=== PATIENT | female | born 1960 | race Caucasian/White ===

== ENCOUNTER 2022-10-05 09:42 | Inpatient (IN) | payer MEDICARE ==
[~2022-10-05] VITALS: Ht 170.2 cm; Wt 54.9 kg
--- NOTE | 2022-10-05 10:15 | NUR ---
copy editor at bedside
[2022-10-05 10:26] LABS: BASOPHILS % (AUTO) 0.9 % (0.0-2.0); EOSINOPHILS % (AUTO) 1.9 % (0.0-6.0); HEMATOCRIT 42 % (33-45); HEMOGLOBIN 13.5 g/dL (11.5-14.8); LYMPHOCYTES # (AUTO) 1.4 K/uL (0.8-4.8); LYMPHOCYTES % (AUTO) 26.7 % (20.0-44.0); MEAN CORPUSCULAR HGB CONC 32 g/dl (31.0-36.0); MEAN CORPUSCULAR VOLUME 84 fL (82-100); MONOCYTES # (AUTO) 0.6 K/uL (0.1-1.30); MONOCYTES % (AUTO) 10.6 % (2.0-12.0); NEUTROPHILS # (AUTO) 3.2 K/uL (1.8-8.9); NEUTROPHILS % (AUTO) 59.9 % (43.0-81.0); PLATELET COUNT (AUTO) 323 K/uL (150-450); RED BLOOD CELL COUNT(AUTO) 5.03 MIL/uL (4.0-5.2); WHITE BLOOD COUNT (AUTO) 5.3 K/uL (4.3-11.0)
[2022-10-05] MEDS ORDERED: ALBU8.5H8 IH (10:31)
[2022-10-05] MEDS ORDERED: LAMO150T2 PO (10:31)
[2022-10-05] MEDS ORDERED: MAG-55 PO (10:31)
[2022-10-05] MEDS ORDERED: FAMO-131 PO (10:31)
[2022-10-05] MEDS ORDERED: IPRA3AMP23 IH (10:31)
[2022-10-05] MEDS ORDERED: FLUT1BLS6 IH (10:31)
[2022-10-05] MEDS ORDERED: SERT100T PO (10:31)
[2022-10-05] MEDS ORDERED: TEMA15CA PO (10:31)
[2022-10-05] MEDS ORDERED: MAGN400O6 PO (10:31)
[2022-10-05] MEDS ORDERED: POLY17PO4 PO (10:31)
[2022-10-05] MEDS ORDERED: ACET325T53 PO (10:31)
[2022-10-05] MEDS ORDERED: BISA10SU11 RC (10:31)
[2022-10-05] MEDS ORDERED: NA P133E RC (10:31)
[2022-10-05] MEDS ORDERED: CHOL100043 PO (10:31)
[2022-10-05] MEDS ORDERED: LEVO15TA5 PO (10:31)
[2022-10-05] MEDS ORDERED: LORA-258 PO (10:31)
[2022-10-05] MEDS ORDERED: CLOZ100T32 PO ×2 (10:31)
[2022-10-05] MEDS ORDERED: LIOT25TA7 PO (10:31)
--- NOTE | 2022-10-05 10:39 | NUR ---
COVID SWAB SENT TO LAB ORDERED
--- NOTE | 2022-10-05 10:40 | NUR ---
MALICK SHELL FOR MEDICAL CLEARANCE AND PSYCH EVAL. +SI. SITTER AT BEDSIDE FOR SAFETY
[2022-10-05 10:52] LABS: CALCIUM, SERUM 10.6 mg/dL (8.5-10.1); CARBON DIOXIDE 29 mmol/L (21-32); CHLORIDE 105 mmol/L (98-107); CREATININE 0.8 mg/dL (0.6-1.3); GLUCOSE 107 mg/dL (74-106); POTASSIUM 4.6 mmol/L (3.5-5.1); SODIUM SERUM 140 mmol/L (136-145); UREA NITROGEN, BLOOD 24 mg/dL (7-18)
[2022-10-05 10:58] LABS: ALANINE AMINOTRANSFERASE 30 U/L (12-78); ALBUMIN 3.3 g/dL (3.4-5.0); ALKALINE PHOSPHATASE 122 U/L (46-116); ASPARTATE AMINOTRANSFERASE 20 U/L (15-37); BILIRUBIN,DIRECT 0.1 mg/dL (0.0-0.2); BILIRUBIN,TOTAL 0.3 mg/dL (0.2-1.0); TOTAL PROTEIN, SERUM 7.6 g/dL (6.4-8.2)
[2022-10-05 11:07] LABS: ACETAMINOPHEN < 10 ug/ml (10-30); ALCOHOL, BLOOD < 3 mg/dL (0-0)
--- NOTE | 2022-10-05 12:00 | NUR ---
214-B BED GIVEN AFTER 5150 HOLD WRITTEN
--- NOTE | 2022-10-05 13:17 | NUR ---
urine specimen sent to lab as ordered
--- NOTE | 2022-10-05 13:23 | NUR ---
CALLED [facility] [phone]
[2022-10-05] MEDS ORDERED: ACET-868 PO (13:29)
[2022-10-05 14:07] LABS: BILIRUBIN,URINE 1+ (NEGATIVE); COLOR,URINE YELLOW (YELLOW); LEUKOCYTE ESTERASE ,URINE TRACE (NEGATIVE); NITRITE, URINE POSITIVE (NEGATIVE); PROTEIN,URINE NEGATIVE (NEGATIVE); UGLUCOSE NEGATIVE (NEGATIVE); UROBILINOGEN,URINE 0.2 EU/dL (0.2)
[2022-10-05 14:57] LABS: BACTERIA,URINE Many /HPF (None Seen); RBC,URINE 0-2 /HPF (0-2); SQUAMOUS EPITHELIAL CELL,UR Few /HPF (None Seen); WBC,URINE 0-2 /HPF (0-3)
[2022-10-05 15:02] LABS: URIC ACID CRYSTALS,URINE Few /HPF (None Seen)
[2022-10-05 15:03] LABS: URINE AMORPHOUS URATE Moderate /HPF (None Seen)
--- NOTE | 2022-10-05 15:10 | NUR ---
Patient placed on a 5150 for GD and admitted to [facility] under the care of Dr. Orellana
--- NOTE | 2022-10-05 15:26 | NUR ---
report given to Shaylee KENNEDY
[2022-10-05 16:00] VITALS: BP 127/75
--- NOTE | 2022-10-05 16:11 | NUR ---
LEORA Clinical Note: Pt placed on a 5150 hold for GD. Pt was aggressive at her facility. [facility] [place] [address] [facility] [place] [address]; . LEORA reached out to Varun metz and he stated that he will confirm with treatment team if pt is welcomed back.LEORA will contact pt's sister Zita ([phone]) to gather collateral. LEORA will work with the MD, family, and treatment team.
--- NOTE | 2022-10-05 16:11 | NUR ---
LEORA Initial Discharge Note: Patient currently resides at [facility] [place] [address]; . LEORA reached out to Varun metz and he stated that he will confirm with treatment team if pt is welcomed back.LEORA will contact pt's sister Zita ([phone]) to gather collateral. LEORA will work with the MD, family, and treatment team.
--- NOTE | 2022-10-05 16:11 | NUR ---
Treatment Plan: Pt refused to sign treatment plan and was blankly staring.
[2022-10-05 16:25] VITALS: BP 127/75
[2022-10-05] MEDS ORDERED: clonazePAM 0.5 MG TABLET PO PRN (16:30)
[2022-10-05] MEDS ORDERED: ACETAMINOPHEN 325 MG TABLET PO PRN ×2 (16:30→20:30)
[2022-10-05] MEDS ORDERED: BLOOD SUGAR DIAGNOSTIC 1 EACH STRIP IN ONE (16:30)
[2022-10-05] MEDS ORDERED: MAGNESIUM HYDROXIDE 30 ML UDC PO PRN ×2 (16:30→20:30)
[2022-10-05] MEDS ORDERED: TEMAZEPAM 7.5 MG CAPSULE PO PRN (16:30)
[2022-10-05] MEDS ORDERED: MAG HYDROX/AL HYDROX/SIMETH 30 ML UDC PO PRN ×2 (16:30→20:30)
--- NOTE | 2022-10-05 16:49 | NUR ---
Admitted a 62 years old female from ER on 515 for GD. Pt. arrived in the unit via a gurney and transported by ER staff. Initially was BIB by ambulance from [facility] to ER due to being non compliant, not taking and agitated. Upon face to face assessment pt. is not responding to any questions being asked. Some information was taken from the ER. Dr. Kerr made of the admission with orders. Box Covering Machine Operator Keo Mosley made aware of the admission and informed that meds are ready for reconciliation. V/S taken, contraband done, skin assessment done and not responding when being asked to signed the admitting papers. Contacted the sister Zita Moscoso at [phone] but unable to reach. Will continue to monitor for safety.
--- NOTE | 2022-10-05 17:30 | NUR ---
RN NOTES PATIENT REFUSED TO CHECK HER BLOOD SUGAR, APPROACHED SEVERAL TIMES. EXPLAINED RISK AND BENEFITS.
--- NOTE | 2022-10-05 18:46 | NUR ---
RN NOTES PATIENT STILL IS NOT COOPERATIVE AND WHEN ASK, SHE GETS IRRITATED NAND AGITATED. REFUSED BLOOD SUGAR MONITORING AND REFUSED DINNER, OFFERED SNACKS BUT STILL REFUSING, WILL ENDORSED TO NIGHT NURSE TO ENCOURAGE ORAL INTAKE.
--- NOTE | 2022-10-05 18:52 | NUR ---
RN NOTES THOROUGH ASSESSMENT WERE NOT DONE ACCORDINGLY PATIENT WAS NOT COOPERATIVE.
[2022-10-05 20:15] VITALS: BP 127/75
[2022-10-05] MEDS ORDERED: BISACODYL SUPP (10 MG) 10 MG/SUPP.RECT SUPP.RECT RC PRN (20:30)
[2022-10-05] MEDS ORDERED: IPRATROPIUM NEB FS 0.5 MG/2.5 ML AMPUL.NEB NEB PRN (20:30)
[2022-10-05] MEDS ORDERED: NA PHOS,M-B/NA PHOS,DI-BA 1 EA ENEMA RC PRN (20:30)
[2022-10-05] MEDS ORDERED: Medication Not On Formulary EA (Ipratropium/Albuterol Sulfate (Duoneb 2.5-0.5 Mg/3 Ml So IH PRN (20:30)
[2022-10-05] MEDS ORDERED: ALBUTEROL FS 2.5 MG/3 ML VIAL.NEB NEB PRN (20:30)
[2022-10-05] MEDS ORDERED: ALBUTEROL FS 2.5 MG/3 ML VIAL.NEB IH PRN (20:30)
--- NOTE | 2022-10-05 21:45 | NUR ---
NEW ADMIT FROM AM SHIFT, ALERT/ORIENTED X2, ROOM AIR, NO COMPLAIN OF PAIN, REFUSED VITALS SIGNS, REFUSED SKIN ASSESSMENT, AGGRESSIVE, YELLING AND HITTING THE BED. OFFERED KLONOPIN, ALSO REFUSED. ON BEDREST, WILL START ON NITROFURANTOIN FOR UTI. KEPT SAFE, WILL CONTINUE TO MONITOR FOR SAFETY.
--- NOTE | 2022-10-05 22:06 | NUR ---
REFUSED BREATHING TREATMENT, REFUSED HAVING SPO2 TAKEN, NO APPARENT SOB
[2022-10-05] MEDS: CEPHALEXIN MONOHYDRATE 500 MG CAPSULE PO SCH (23:12)
--- NOTE | 2022-10-05 23:12 | NUR ---
LAURA REFUSED, OFFERED X3, EDUCATED ON MEDICATION, STILL REFUSED
[2022-10-06] MEDS: CEPHALEXIN MONOHYDRATE 500 MG CAPSULE PO SCH (05:49)
--- NOTE | 2022-10-06 06:06 | NUR ---
ADMITTED 10/05/22 BY AM SHIFT, ALERT AND ORIENTED X2, ROOM AIR, NO COMPLAIN OF PAIN, AGGRESSIVE, HOSTILE, REFUSING NURSING CARE, BREATHING TREATMENT, KEFLEX. REFUSED X2, REFUSED TO EAT. SPORADIC SCREAMING, ASKING FOR HELP, WHEN ASK, PATIENT BECOMES VERBALLY ABUSIVE, ALSO HITTING BED WITH HANDS. DID NOT ATTEMPT TO GET OUT OF BED. AGREED TO HAVE DIAPER CHANGED, BUTTOCKS INTACT, NOTED PAIN PUMP EMBEDDED UNDER THE SKIN OF LEFT BUTTOCK. REFUSED BLOOD DRAW.
[2022-10-06 08:00] VITALS: BP 127/71
[2022-10-06] MEDS: ENSURE ENLIVE CHOC 237 ML CAN PO SCH ×2 (08:00→17:02)
[2022-10-06] MEDS: CEPHALEXIN MONOHYDRATE 250 MG CAPSULE PO SCH ×3 (12:00→23:46)
[2022-10-06] MEDS: OLANZAPINE ZYDIS 5 MG TAB.RAPDIS PO SCH ×2 (13:00→16:40)
--- NOTE | 2022-10-06 13:18 | NUR ---
RN-NOTES PATIENT REFUSED LAB DRAW DESPITE EXPLANATIONS RISK AND BENEFITS.
--- NOTE | 2022-10-06 13:57 | NUR ---
RN-NOTES PATIENT REFUSED 1200 AND 1300PM P.O MEDICATIONS. STATED" NO MEDICATIONS". OFFERED X3
[2022-10-06 16:00] VITALS: BP 112/64
--- NOTE | 2022-10-06 17:03 | NUR ---
RN-NOTES PATIENT REFUSED KEFLEX 500MG P.O . OFFERED X3
--- NOTE | 2022-10-06 17:27 | NUR ---
RN-NOTES PATIENT IN THE ROOM MOST THE TIME A/O X1 GUARDED NO ACUTE DISTRESS NOTED. PATIENT REFUSED ALL P.O MEDICATIONS DESPITE ENCOURAGEMENT. NOTED WITH EASILY ANGRY,GUARDED,MINIMAL INTERACTIONS WITH STAFF.NEEDS MAXIMUM ASSIST WITH ADL'S. ALL NEEDS ATTENDED AND ANTICIPATED. WILL CONT. MONITORING FOR SAFETY AND BEHAVIOR.WILL ENDORSE TO INCOMING NURSE FOR THE CONTINUITY OF CARE.
--- NOTE | 2022-10-06 19:45 | NUR ---
RN NOTES: RECEIVED PATIENT RESTING IN ROOM. A & O X 1, REMAINS EXTREMELY CONFUSED, DISORGANIZED, PARANOID, EASILY AGITAED UNABLE TO FOLLOW DIRECTIONS, YELLING SCREAMING PARANOID, UNCOOPERTIVE HIGH FALL RISKS ,NO S/S OF APPARENT DISTRESS AT THIS TIME. NO ACUTE DISTRESS NOTED , NON COMPLIANT WITH MEDICATIONS . PATIENT DENIES SUICIDAL AND HOMICIDAL IDEATIONS AT THIS TIME. SAFETY PRECAUTIONS MAINTAINED WILL CONTINUE TO MONITOR THIS PATIENT Q15 MINUTES WITH THE HELP OF STAFF TO MAINTAIN SAFETY.
--- NOTE | 2022-10-06 23:46 | NUR ---
RN-NOTES; REFUSED MEDICATION PATIENT REFUSED KEFLEX, EXPLAINED RISK AND BENEFITS BUT STILL REFUSED. OFFERED X3 , PT. BEHAVIOUR UNCOOPERTIVE , YELLING ,SCREAMING, ANXIOUS,PARANOID, WILL CONTINUE WITH CARE.
[2022-10-07] MEDS: CEPHALEXIN MONOHYDRATE 250 MG CAPSULE PO SCH ×4 (06:00→23:57)
--- NOTE | 2022-10-07 07:13 | NUR ---
RN-NOTES; REFUSED MEDICATION PATIENT REFUSED KEFLEX AT 0600, EXPLAINED RISK AND BENEFITS BUT STILL REFUSED. OFFERED X3 , PT. BEHAVIOUR UNCOOPERTIVE , YELLING ,SCREAMING, ANXIOUS,PARANOID, WILL CONTINUE WITH CARE.
[2022-10-07 08:00] VITALS: BP 136/71
[2022-10-07] MEDS: ENSURE ENLIVE CHOC 237 ML CAN PO SCH ×2 (08:00→17:15)
[2022-10-07] MEDS: OLANZAPINE ZYDIS 5 MG TAB.RAPDIS PO SCH ×2 (09:00→17:00)
[2022-10-07] MEDS: VENLAFAXINE XR 37.5 MG CAP.SR.24H PO SCH (09:00)
--- NOTE | 2022-10-07 09:00 | NUR ---
HAND DRAWER IN HELPER NOTE PATIENT REFUSED 0900 MED. PATIENT ALSO REFUSED BREAKFAST. WILL CONTINUE TO MONITOR.
--- NOTE | 2022-10-07 12:00 | NUR ---
SCIENTIFIC GLASS BLOWER NOTE PATIENT REFUSED CEPHALEXIN 1200HRS.
[2022-10-07 16:00] VITALS: BP 98/68
--- NOTE | 2022-10-07 17:00 | NUR ---
SLAT GRADER NOTE PATIENT REFUSED 1700 MED. PATIENT ALSO STATED THAT FOR DINNER SHE ONLY WANTED HER ENSURE, THAT SHE DIDNT WANT TO EAT ANYTHING ELSE. PATIENT DRANK ENTIRE ENSURE FOR LUNCH ONLY.
[2022-10-07 20:33] VITALS: BP 110/68
--- NOTE | 2022-10-08 | NUR ---
RN NOTE PATIENT DECLINED HAVING SKIN ASSESSMENT PICTURES TAKEN. PATIENT HAS BEEN DECLINING ALL TREATMENT THROUGHOUT SHIFT. WILL ENCOURAGE PATIENT TO HAVE PICTURES TAKEN AGAIN IN A.M. PATIENT O/W STABLE; WILL CONTINUE TO MONITOR PATIENT.
[2022-10-08] MEDS: CEPHALEXIN MONOHYDRATE 250 MG CAPSULE PO SCH ×4 (06:00→23:33)
[2022-10-08 08:00] VITALS: BP 106/50
--- NOTE | 2022-10-08 08:39 | NUR ---
LEORA Family Contact: SW attempted to contact pt's sister Zita ([phone]) and it was unavailable.
[2022-10-08] MEDS: VENLAFAXINE XR 37.5 MG CAP.SR.24H PO SCH (08:52)
[2022-10-08] MEDS: OLANZAPINE ZYDIS 5 MG TAB.RAPDIS PO SCH ×2 (08:52→17:00)
[2022-10-08] MEDS: ENSURE ENLIVE CHOC 237 ML CAN PO SCH ×2 (08:52→17:12)
--- NOTE | 2022-10-08 08:53 | NUR ---
RN NOTES: PT REFUSED AM MEDS, RN EXPLAINED IMPORTANCE OF MEDICATION, PT STILL REFUSED, RETURNED MEDS PER UNIT PROTOCOL
--- NOTE | 2022-10-08 09:14 | NUR ---
Facility Contact: SW spoke with Varun Maddox ([phone]) who stated that pt is welcomed back to [facility] when stable.
--- NOTE | 2022-10-08 12:40 | NUR ---
RN NOTES: PT REFUSED 12PM MEDICATION, RN EXPLAINED IMPORTANCE OF PM MEDICATION, PT STILL DECLINED, RETURNED MED PER UNIT PROTOCOL
[2022-10-08 16:00] VITALS: BP 108/61
--- NOTE | 2022-10-08 19:20 | NUR ---
RN notes Received Pt from morning nurse. Pt is resting in bed comfortably. Pt is alert and orientedX1, anxious, disorganized, uncooperative, non complaint. On room air. No SOB. No S/S of distress noted. Reality orientation provided. safety precautions is maintained. Will continue to monitor Q 15 mins checks for safety and behavior.
--- NOTE | 2022-10-08 20:27 | NUR ---
RN notes Pt refuses VS. Explained risks and benefits. Pt keep refusing. Offered several times. Pt agitated easily. Will continue to monitor.
[2022-10-08 21:20] VITALS: BP 115/82
--- NOTE | 2022-10-08 21:20 | NUR ---
RN notes Pt is complaining SOB. VS is taken. BP 115/82. HR 88 and O2 sat 100% on room air. Asked Pt again if Pt still having SOB. Pt stated "I am okay." Fuck you!" Will continue to monitor. HOB elevated, bed alarm is on. Safety precautions is maintained.
--- NOTE | 2022-10-08 23:34 | NUR ---
RN notes Pt is refusing keflex. explained risks and benefits. Pt keep refusing. Pt agitated easily. Will continue to monitor.
[2022-10-09] MEDS: CEPHALEXIN MONOHYDRATE 250 MG CAPSULE PO SCH (06:00)
[2022-10-09 08:00] VITALS: BP 99/56
--- NOTE | 2022-10-09 08:14 | NUR ---
HOTBED LEVER OPERATOR NOTES RECEIVED PATIENT RESTING IN ROOM. AOX1, REMAINS CONFUSED, DISORGANIZED, PARANOID, EASILY AGITATED UNABLE TO FOLLOW DIRECTIONS, YELLING SCREAMING, UNCOOPERATIVE HIGH FALL RISKS,NO S/S OF APPARENT DISTRESS AT THIS TIME. NO ACUTE DISTRESS NOTED, NON COMPLIANT WITH MEDICATIONS. PATIENT REFUSED MORNING MEDICATION EXPLAINED RISK AND BENEFITS BUT STILL REFUSED. PATIENT BECAME AGGRESSIVE WITH CHARGE OPERATOR'S AND PUSHED MEAL TRAY OUT OF THE WAY. PATIENT IS REFUSING TO EAT AND WILL ONLY DRINK AN ENSURE. PATIENT COMPLAINED ABOUT SHORTNESS OF BREATH, ELEVATED PATIENTS BED. TOOK PATIENTS VITALS BP 99/56 HR 65 02 SAT 97%, PATIENT THEN TOLD ME TO "FUCK OFF, AND TO GET OUT" CHARGE NURSE NOTIFIED. PATIENT DID DENY SUICIDAL AND HOMICIDAL IDEATIONS AT THIS TIME. SAFETY PRECAUTIONS MAINTAINED WILL CONTINUE TO MONITOR THIS PATIENT Q15 MINUTES WITH THE HELP OF STAFF TO MAINTAIN SAFETY.
[2022-10-09] MEDS: ENSURE ENLIVE CHOC 237 ML CAN PO SCH ×5 (08:16→21:42)
[2022-10-09] MEDS: VENLAFAXINE XR 37.5 MG CAP.SR.24H PO SCH (09:00)
[2022-10-09] MEDS: OLANZAPINE ZYDIS 5 MG TAB.RAPDIS PO SCH ×2 (09:00→17:00)
[2022-10-09] MEDS: AMOX/CLAVULANATE 875 MG TABLET PO SCH ×2 (11:27→21:00)
--- NOTE | 2022-10-09 12:19 | NUR ---
PEWTER FINISHER NOTE PATIENT DRANK ENSURE FOR LUNCH, ATE ICE CREAM AND CHOCOLATE PUDDING WITH NO ISSUES.
[2022-10-09 16:00] VITALS: BP 92/55
--- NOTE | 2022-10-09 21:43 | NUR ---
Pt refused 2100 medication...
[2022-10-10 08:00] VITALS: BP 101/57
[2022-10-10] MEDS: VENLAFAXINE XR 37.5 MG CAP.SR.24H PO SCH (09:00)
[2022-10-10] MEDS: OLANZAPINE ZYDIS 5 MG TAB.RAPDIS PO SCH ×2 (09:00→17:00)
[2022-10-10] MEDS: ENSURE ENLIVE CHOC 237 ML CAN PO SCH ×5 (09:00→20:20)
[2022-10-10] MEDS: AMOX/CLAVULANATE 875 MG TABLET PO SCH ×2 (09:00→20:20)
[2022-10-10 16:00] VITALS: BP 103/59
[2022-10-10] MEDS: OLANZAPINE 10 MG VIAL IM PRN (17:10)
--- NOTE | 2022-10-10 18:59 | NUR ---
RN NOTES PATIENT WAS STILL NOTED WITH BEHAVIOR TO BEING AGITATED AND TRYING TO CLIMB OUT OF BED , PUT IN O[place]A CHAIR , COMPLIANT WITH MEDS MIXED WITH APPLE SAUCE AND ABLE TO PARTICIPATE ACTIVITY AND PATIENT ON ATB OF ROCEPHIN IM GIVEN , NO ASE NOTED ENDORSED TO NEXT SHIFT Addendum: 10/10/22 at 1907 by JYOTI BOCANEGRA RN DISREGARD THIS NOTES , WRONG DOCUMENTATION
--- NOTE | 2022-10-10 19:07 | NUR ---
RN NOTES PATIENT WAS ON REISE HEARING AND REISED WAS APPROVED , ZYPREXA IM 5MG BID IF PO MEDS IS REFUSED , GIVEN ORDERED , STILL NON COMPLIANT WITH MEDS
[2022-10-10 20:00] VITALS: BP 98/56
--- NOTE | 2022-10-10 20:21 | NUR ---
REFUSED AUGMENTIN AND ENSURE. OFFERED X3, EXPLAINED RISKS AND BENEFITS, STILL REFUSED.
[2022-10-10 20:47] VITALS: BP_SYST 112; BP_SYST 98; BP_DIAS 56; BP_DIAS 61
[2022-10-11 08:00] VITALS: BP 95/65
[2022-10-11] MEDS: AMOX/CLAVULANATE 875 MG TABLET PO SCH ×3 (09:00→21:04)
[2022-10-11] MEDS: OLANZAPINE ZYDIS 5 MG TAB.RAPDIS PO SCH ×3 (09:00→17:11)
[2022-10-11] MEDS: VENLAFAXINE XR 37.5 MG CAP.SR.24H PO SCH (09:00)
[2022-10-11] MEDS: ENSURE ENLIVE CHOC 237 ML CAN PO SCH ×4 (09:06→21:14)
[2022-10-11] MEDS: OLANZAPINE 10 MG VIAL IM PRN ×2 (09:07→17:46)
[2022-10-11 16:00] VITALS: BP 100/60
--- NOTE | 2022-10-11 18:26 | NUR ---
STOCK FITTER NOTE PATIENT REFUSED ALL MEDS. PATIENT DID DRINK ALL ENSURES GIVEN AT EACH MEAL.PATIENT IS RIESED ZYPREXA IM 5MG BID IF PO MEDS IS REFUSED , GIVEN ORDERED , STILL NON COMPLIANT WITH MEDS. PATIENT VERBALLY ABUSIVE TOWARDS STAFF.
[2022-10-11 20:37] VITALS: BP 135/76
--- NOTE | 2022-10-11 21:57 | NUR ---
RN NOTES; PATIENT REFUSED DUE MEDS @2100-AMOX 875MG,EXPLAINED BENEFITS X3,STILL REFUSED.
[2022-10-12 08:00] VITALS: BP 128/72
[2022-10-12] MEDS: VENLAFAXINE XR 37.5 MG CAP.SR.24H PO SCH ×2 (08:42→09:00)
[2022-10-12] MEDS: ENSURE ENLIVE CHOC 237 ML CAN PO SCH ×4 (08:42→21:41)
[2022-10-12] MEDS: AMOX/CLAVULANATE 875 MG TABLET PO SCH ×3 (08:45→21:00)
--- NOTE | 2022-10-12 09:29 | NUR ---
RN- NOTES PATIENT REFUSED ALL 0900 MEDICATIONS. ENCOURAGEMENT AND EDUCATION ON MEDICATION COMPLIANCE GIVEN X3, PATIENT CONTINUES TO REFUSE.
[2022-10-12] MEDS: HALOPERIDOL 5 MG TABLET PO SCH ×2 (10:00→16:30)
[2022-10-12] MEDS: HALOPERIDOL LACTATE INJ 5 MG/ML VIAL IM PRN ×2 (10:06→17:19)
--- NOTE | 2022-10-12 10:06 | NUR ---
RN- NOTES HALDOL IM ADMINISTERED DUE TO PATIENT REFUSING HALDOL P.O, PER NICHOLAS AND MD ORDERS.
--- NOTE | 2022-10-12 15:55 | NUR ---
RN- NOTES PATIENT REFUSED LAB DRAW, EDUCATED AND ENCOURAGED X3, PATIENT CONTINUES TO REFUSE.
[2022-10-12 16:00] VITALS: BP 95/64
--- NOTE | 2022-10-12 17:20 | NUR ---
RN- NOTES HALDOL IM ADMINISTERED DUE TO PATIENT REFUSING HALDOL P.O, PER NICHOLAS AND MD ORDERS.
--- NOTE | 2022-10-12 18:15 | NUR ---
RN- CLOSING NOTES PATIENT IS AWAKE, LAYING DOWN IN BED. BREATHING EVEN AND NON LABORED WITH NO S/S OF DISTRESS PATIENT ATE 25% OF BREAKFAST/LUNCH, AND 50% OF DINNER. PATIENT IS GUARDED, ISOLATIVE, DEPRESSED, WITH PERIODS OF YELLING OUT TO STAFF, BUT REFUSAL OF HELP WHEN OFFERED. PATIENT REFUSED ALL P.O MEDICATIONS, IM HALDOL ADMINISTERED PER REFUSAL FOLLOWING RIESE AND MD ORDERS. DENIES SI/HI AT THIS TIME. WILL CONTINUE TO MONITOR Q 15 MINUTES FOR SAFETY AND BEHAVIOR.
[2022-10-12 20:00] VITALS: BP 98/59
--- NOTE | 2022-10-12 21:41 | NUR ---
RN NOTES; PATIENT REFUSED DUE MEDS NITROFURANTOIN 100MG PO,EXPLAINED BENEFITS X3,STILL REFUSED.
[2022-10-13 08:00] VITALS: BP 99/60
[2022-10-13] MEDS: AMOX/CLAVULANATE 875 MG TABLET PO SCH ×2 (08:24→21:00)
[2022-10-13] MEDS: ENSURE ENLIVE CHOC 237 ML CAN PO SCH ×4 (08:25→21:08)
[2022-10-13] MEDS: VENLAFAXINE XR 37.5 MG CAP.SR.24H PO SCH (08:25)
[2022-10-13] MEDS: HALOPERIDOL 5 MG TABLET PO SCH ×2 (08:25→16:57)
[2022-10-13] MEDS: HALOPERIDOL LACTATE INJ 5 MG/ML VIAL IM PRN ×2 (08:26→16:58)
[2022-10-13 16:00] VITALS: BP 90/51
--- NOTE | 2022-10-13 19:30 | NUR ---
RN notes Received Pt from morning nurse. Pt is resting in bed comfortably. Pt is alert and orientedX1, irritable, anxious, disorganized, and non compliant with care. VS is stable. On room air. No SOB. No S/S of distress noted. Pt denies SI/HI at this time. Reality orientation provided. Snacks is offered but Pt refuses. Safety precautions is maintained. Will continue to monitor Q 15 mins checks for safety and behavior.
[2022-10-13 20:00] VITALS: BP 101/54
--- NOTE | 2022-10-13 20:00 | NUR ---
RN notes Called RT. Pt is complaining of SOB. VS is stable. O2 sat is 98%. Pt refuses breathing tx. HOB elevated. Pt agitated easily and non complaint with care. Explained risks and benefits. Will continue to monitor.
--- NOTE | 2022-10-13 20:14 | NUR ---
RN notes RT's at the bedside (Carol). Breathing tx was offered several times. Pt states "No!! I dont need it." O2 sat is WNL. O2 sat is 95%. Will continue to monitor.
--- NOTE | 2022-10-13 22:00 | NUR ---
RN notes Pt is resting in bed comfortably. Pt denies any SOB. No SOB noted. HOB elevated. safety precautions is maintained.
[2022-10-14 08:00] VITALS: BP 100/56
[2022-10-14] MEDS: HALOPERIDOL 5 MG TABLET PO SCH ×2 (08:47→17:21)
[2022-10-14] MEDS: AMOX/CLAVULANATE 875 MG TABLET PO SCH (08:47)
[2022-10-14] MEDS: VENLAFAXINE XR 37.5 MG CAP.SR.24H PO SCH (08:47)
[2022-10-14] MEDS: ENSURE ENLIVE CHOC 237 ML CAN PO SCH ×4 (10:59→21:00)
[2022-10-14] MEDS: HALOPERIDOL LACTATE INJ 5 MG/ML VIAL IM PRN (11:00)
[2022-10-14 16:00] VITALS: BP 102/50
[2022-10-14 21:35] VITALS: BP 93/60
--- NOTE | 2022-10-14 22:00 | NUR ---
engineering technical specialist notes pt seen in her bed awake and alert , refused to take skin photo.
--- NOTE | 2022-10-15 06:05 | NUR ---
hydraulic specialist notes pt checked she's remains resting but arouse easily, sponges bath rendered with the helped of kavin. re-checked her skin , no redness noted right elbow is clear now only noticed easily red from pressure . needs to turn q 2hrs. or upload on pillows. Pt slept , calmed and no signs of any acute distress noted. will continue monitoring Q 15 minutes for safety and behavior.
[2022-10-15 08:00] VITALS: BP 100/62
[2022-10-15] MEDS: ENSURE ENLIVE CHOC 237 ML CAN PO SCH ×4 (08:28→21:52)
[2022-10-15] MEDS: HALOPERIDOL LACTATE INJ 5 MG/ML VIAL IM PRN ×2 (08:33→17:42)
[2022-10-15] MEDS: VENLAFAXINE XR 37.5 MG CAP.SR.24H PO SCH (09:00)
[2022-10-15] MEDS: HALOPERIDOL 5 MG TABLET PO SCH ×2 (09:00→17:00)
[2022-10-15] MEDS ORDERED: HALOPERIDOL DECANOATE IM 100 MG/ML AMPUL IM ONE (14:30)
[2022-10-15 16:00] VITALS: BP 100/61
--- NOTE | 2022-10-15 18:18 | NUR ---
CONSTRUCTION ANALYST NOTE PATIENT REFUSED ALL PO MEDS, PATIENT CONSUMED ENSURE FOR EACH MEAL. PT IS RIESED AND HALDOL ADMINISTERED DIRECTED. PT BECAME VERBALLY ASSAULTIVE TOWARDS THE EVENING TIME TO STAFF.
--- NOTE | 2022-10-15 18:35 | NUR ---
PSYCHOLOGIST CHIEF NOTE PATIENT ADVISED SHE IS HAVING DIFFICULTY BREATHING. REPOSITIONED PATIENT AND BREATHING SLIGHTLY IMPROVED. 02 SAT AT 95% PATIENTS NORMAL BASELINE IS 96%-98%. NOTIFIED RT FOR PRN BREATHING TREATMENT. NOTIFIED CHARGE NURSE.
--- NOTE | 2022-10-15 18:49 | NUR ---
FICTION AND NONFICTION PROSE WRITER NOTE CHECKED PATIENT, PATIENT 02 SAT AT 93% READJUSTED PATIENT POSITION. PATIENT STILL SHORT OF BREATH NOTIFIED RT AND CHARGE NURSE. PATIENTS NORMAL BASELINE IS 96-98%.
[2022-10-15 19:57] VITALS: BP 104/63
[2022-10-16 08:00] VITALS: BP 100/57
[2022-10-16] MEDS: VENLAFAXINE XR 37.5 MG CAP.SR.24H PO SCH (09:00)
[2022-10-16] MEDS: HALOPERIDOL 5 MG TABLET PO SCH ×2 (09:00→16:47)
[2022-10-16] MEDS: ENSURE ENLIVE CHOC 237 ML CAN PO SCH ×4 (09:12→20:46)
[2022-10-16] MEDS: HALOPERIDOL LACTATE INJ 5 MG/ML VIAL IM PRN ×2 (09:59→16:56)
[2022-10-16 16:00] VITALS: BP 105/58
--- NOTE | 2022-10-16 16:47 | NUR ---
RN NOTES PATIENT REFUSED HALDOL TABLET
[2022-10-16 20:06] VITALS: BP 101/56
[2022-10-17 08:00] VITALS: BP 108/53
[2022-10-17] MEDS: VENLAFAXINE XR 37.5 MG CAP.SR.24H PO SCH (09:46)
[2022-10-17] MEDS: ENSURE ENLIVE CHOC 237 ML CAN PO SCH ×4 (09:47→20:59)
[2022-10-17] MEDS: HALOPERIDOL 5 MG TABLET PO SCH ×2 (09:47→17:08)
[2022-10-17 16:00] VITALS: BP 98/59
[2022-10-17] MEDS ORDERED: ENSURE ENLIVE 237 ML LIQUID (VANILLA) PO SCH (17:00)
--- NOTE | 2022-10-17 19:15 | NUR ---
RN notes Received Pt from morning nurse. Pt is awake and laying in bed comfortably. Pt is able to make needs known. Pt is alert and orientedX1, anxious, isolative and disorganized. Compliant with care. Reality orientation provided. VS is stable. on room air. No SOB. No S/s of distress noted. Snacks is offered. safety precautions is maintained. Will continue to monitor Q 15 mins checks for safety and behavior.
[2022-10-17 19:56] VITALS: BP 99/67
[2022-10-18 08:00] VITALS: BP 99/60
[2022-10-18] MEDS: HALOPERIDOL 5 MG TABLET PO SCH ×2 (08:45→16:11)
[2022-10-18] MEDS: ENSURE ENLIVE CHOC 237 ML CAN PO SCH ×4 (08:45→21:00)
[2022-10-18] MEDS: VENLAFAXINE XR 37.5 MG CAP.SR.24H PO SCH (08:46)
--- NOTE | 2022-10-18 09:50 | NUR ---
LEORA Family Contact: SW attempted to contact pt's sister Zita ([phone]) and notified of pt's discharge/treatment plan and she is aware.
--- NOTE | 2022-10-18 14:35 | NUR ---
INFORMATION ASSURANCE ANALYST DC NOTE 62 YEAR OLD FEMALE DISCHARGED TO [facility] IN STABLE CONDITION. COMPLIANT WITH MEDICATIONS, COOPERATIVE WITH TREATMENT PLANS. PATIENT DENIES SI/HI AND INSTRUCTED TO GO TO THE CLOSEST ER IF DEVELOPING SI/HI. BEHAVIOR IMPROVED, PSYCHIATRIC TX PLANS MET, MEDICAL TX PLANS DEFERRED FOR CONTINUAL MONITORING. PATIENT DENIES AUDITORY AND VISUAL HALLUCINATIONS. EDUCATED PT ABOUT AFTER CARE PLAN (EXIT CARE) AND COPY PROVIDED. RETURNED PERSONAL BELONGINGS TO PATIENT. -REPORT GIVEN AT SNF TO RN ON SHIFT -PT DISCHARGE PAPERWORK SIGNED -MEDICATIONS RECONCILED WITH DR & PSYCHIATRIST PT LEFT FACILITY AT 1435 VIA AMBULANCE TRANSPORT. FACILITY LOCATED AT [address] [place] [address] .
--- NOTE | 2022-10-18 14:38 | NUR ---
QA AUDITOR NOTE PATIENT STATED SHE IS NOT ABLE TO USE THE BATHROOM AND IF SHE COULD BE GIVEN SOMETHING TO HELP. ADMINISTERED PRN MAGNESIUM HYDROXIDE 30ML
[2022-10-18 16:00] VITALS: BP 98/62
[2022-10-18 20:00] VITALS: BP 101/68
[2022-10-18 20:01] VITALS: BP 101/68
--- NOTE | 2022-10-19 05:22 | NUR ---
CLOSING NOTES: WILL OPEN EYES WHEN HER NAME IS SPOKE MERRY MOMENTARY EYE CONTACT THEN SHUTTING HER EYES. REFUSES ENSURE/JELLO/PUDDING/PB SANDWITCH. SHE IS MUTE WHEN ASKED A QUESTION. THRU THE NIGHT NOTED SHE NEETA CHANGE HER OWN POSITION SHE IS SLEEPING RESP EVEN AND UNLABORED
[2022-10-19 08:00] VITALS: BP 96/60
[2022-10-19] MEDS: VENLAFAXINE XR 37.5 MG CAP.SR.24H PO SCH ×2 (08:22→09:00)
[2022-10-19] MEDS: ENSURE ENLIVE CHOC 237 ML CAN PO SCH ×4 (08:22→21:00)
[2022-10-19] MEDS: HALOPERIDOL 5 MG TABLET PO SCH ×4 (09:00→16:27)
[2022-10-19] MEDS: HALOPERIDOL LACTATE INJ 5 MG/ML VIAL IM PRN (09:22)
[2022-10-19] MEDS ORDERED: HALOPERIDOL LACTATE INJ 5 MG/ML VIAL IM PRN (10:00)
--- NOTE | 2022-10-19 10:10 | NUR ---
New order of Haldol not given due Haldol IM given at 0900.
--- NOTE | 2022-10-19 12:00 | NUR ---
RN notes Patient was cooperative at this time taking her medications. Patient verbalized, " I don't want to take another injection so I am just gonna take that pill." Will continue to monitor.
[2022-10-19 16:00] VITALS: BP 90/60
--- NOTE | 2022-10-19 18:34 | NUR ---
RN notes Pt is awake and laying in bed comfortably. Stays in room all throughout the shift, encouraged to join group session however patient refused. Pt is more calm and cooperative in the afternoon than in the morning. Able to make needs known. Pt is alert and orientedX3, anxious, isolative and disorganized. Compliant with care. Reality orientation provided. on room air. No SOB. No s/s of distress noted. Snacks is offered in between meals, care rendered. Kept patient tidy and comfortable. Safety precautions is maintained. Will endorsed to next nurse.
--- NOTE | 2022-10-19 19:29 | NUR ---
GPS RN NOTE, RECEIVED PATIENT AWAKE AND IN BED, NO S/S OR COMPLAINTS OF PAIN AT THIS TIME. PATIENT IS DISPLAYING NO S/S OF APPARENT DISTRESS AT THIS TIME. PATIENT BREATHING IS UNLABORED WITH EQUAL RISE AND FALL OF THE CHEST. PATIENT IS ALERT AND ORIENTED X 2 ON ROOM AIR WITH A SPO2 96%. PATIENT IS SELECTIVE WITH MEDICATION, ANXIOUS, RESTLESS, PARANOID AT TIMES, VERBALLY ABUSIVE, CONFUSED, FORGETFUL, AND UNCOOPERATIVE. PATIENT DENIES SUICIDAL AND HOMICIDAL IDEATIONS AT THIS TIME. PATIENT ASSISTED WITH TURNING AND REPOSITIONING Q2HR AND PRN FOR COMFORT AND CIRCULATION. PATIENT HAS NO NEEDS AT THIS TIME. PATIENT EDUCATED ON THE USE OF THE CALL SIMPSON. PATIENT BED SIDE RAILS UP X 2 FOR SAFETY. PATIENT BED IS LOCKED AND LOW. WILL CONTINUE TO MONITOR THIS PATIENT Q15 MINUTES WITH THE HELP OF STAFF TO MAINTAIN SAFETY.
[2022-10-20 08:00] VITALS: BP 99/60
[2022-10-20] MEDS: VENLAFAXINE XR 37.5 MG CAP.SR.24H PO SCH (08:16)
[2022-10-20] MEDS: HALOPERIDOL 5 MG TABLET PO SCH ×3 (08:16→16:37)
[2022-10-20] MEDS: ENSURE ENLIVE CHOC 237 ML CAN PO SCH ×4 (08:17→20:01)
--- NOTE | 2022-10-20 11:05 | NUR ---
RN Notes: Received pt. asleep in bed, breathing is even and unlabored. Ate 25% for breakfast and compliant on po meds. Pt. is suspicious and irritable and non verbal to staffs. Encouraged to verbalize feelings and motivated to take shower. Needs attended and will continue to monitor for safety.
[2022-10-20 16:00] VITALS: BP 90/60
[2022-10-21 08:00] VITALS: BP 111/60
[2022-10-21] MEDS: ENSURE ENLIVE CHOC 237 ML CAN PO SCH ×4 (09:11→20:37)
[2022-10-21] MEDS: VENLAFAXINE XR 37.5 MG CAP.SR.24H PO SCH (09:12)
[2022-10-21] MEDS: HALOPERIDOL 5 MG TABLET PO SCH ×3 (09:12→17:33)
[2022-10-21 16:00] VITALS: BP 122/77
--- NOTE | 2022-10-21 20:00 | NUR ---
RN NOTE: PATIENT REFUSED WEEKLY SKIN ASSESSMENT. EXPLAINED RISKS/BENEFITS. PATIENT BECAME AGITATED AND STATED "GO AWAY".
[2022-10-21 20:10] VITALS: BP 102/60
[2022-10-22 08:00] VITALS: BP 117/64
--- NOTE | 2022-10-22 08:01 | NUR ---
SW Discharge Note: Patient will be discharged to care home facility to [facility] [address] [place] [address]; . Please arrange Ambulance transportation for patient to be picked up at 2PM. Ribbon Blockmaker spoke with LAUREL, Facility Maintenance Technician at [facility]; ([phone], who stated patient will be accepted at facility today. Patient is alert and oriented x1. Patient denies any suicidal or homicidal ideations. Patient is aware and agreeable with discharge plans. Patients sister Sister Zita ([phone]) has been notified. Patient will continue to follow-up with (Psychiatrist) Dr. Kerr [address], [place] [address]; ([phone]) and Display Fabrication Supervisor Dr. Michael at [address] [facility] [address] [facility] [address], [place] [address]; ([phone]). Patient presents with euthymic mood and congruent mood.
[2022-10-22] MEDS: VENLAFAXINE XR 37.5 MG CAP.SR.24H PO SCH (08:20)
[2022-10-22] MEDS: HALOPERIDOL 5 MG TABLET PO SCH ×2 (08:20→13:35)
[2022-10-22] MEDS: ENSURE ENLIVE CHOC 237 ML CAN PO SCH ×2 (09:41→13:35)
--- NOTE | 2022-10-22 10:35 | NUR ---
RN-CO: Dr Francis gave an order to discontinue hold and discharge patient to SNF, noted and carried out.
--- NOTE | 2022-10-22 13:50 | NUR ---
NURSE NOTE; 62 YEAR OLD FEMALE DISCHARGED TO [facility] IN STABLE CONDITION. COMPLIANT WITH MEDS, COOPERATIVE WITH TREATMENT PLANS. PT DENIES SI/HI AND INSSTRUCTED TO GO TO NURSE OR CALL 911 IF DEVELOPING SI/HI. BEHAVIOR IMPROVED, PSYCHIATRIC TX PLANS MET, MEDICAL TREATMENT PLANS DEFERRED FOR CONTINUAL MONITORING. HOLD DISCONTINUED BY DR SHAH. EDUCATED PT ABOUT AFTER CARE PLAN AND COPU PROVIDED. RETURNED PERSONAL BELONGINGS TO PT. MEDICATIONS RECONCILED WITH DR SHAH AND DR SUAREZ. BOTH DR SHAH AND DR SUAREZ DISCHARGED PT. REPORT GIVEN TO MORELIA BENEDICT AT [facility] FOR CONTINUITY OF CARE. PT VERBALIZED UNDERSTANDING BUT REFUSED TO SIGN DISCHARGE PAPERWORK. PT REFUSED ANY PICTURE TAKEN THROUGHOUT HOSPITALIZATION. PT LEFT THE UNIT AT 1350 VIA AMBULANCE.
== END 2022-10-22 13:50 | DRG 885 ==
LOC: ER 09:46 → GPS 15:37
PROVIDERS: ADMIT Psychiatry & Neurology Psychiatry; ATTEND Nurse Practitioner Acute Care
DX: F33.3 Major depressive disorder, recurrent, severe with psychotic symptoms (principal); G93.41 Metabolic encephalopathy; E44.0 Moderate protein-calorie malnutrition; N39.0 Urinary tract infection, site not specified; F03.92 Unspecified dementia, unspecified severity, with psychotic disturbance; R64 Cachexia; Z68.1 Body mass index [BMI] 19.9 or less, adult; B96.20 Unspecified Escherichia coli [E. coli] as the cause of diseases classified elsewhere; Z91.14 Patient's other noncompliance with medication regimen; J45.909 Unspecified asthma, uncomplicated; F41.9 Anxiety disorder, unspecified; E83.52 Hypercalcemia; E88.09 Other disorders of plasma-protein metabolism, not elsewhere classified; R27.8 Other lack of coordination; R79.89 Other specified abnormal findings of blood chemistry; M62.81 Muscle weakness (generalized); Z87.440 Personal history of urinary (tract) infections; Z20.822 Contact with and (suspected) exposure to COVID-19
CPT/HCPCS: 36415; 80048-TC; 80076-TC; 81001; 85025-TC; 87081-TC; 87086-TC; C9803; G0480; J1630; J1631; J3490

== ENCOUNTER 2025-03-10 17:42 | Inpatient (IN) | payer MEDICARE ==
[~2025-03-10] VITALS: Ht 182.9 cm; Wt 59.4 kg
[~2025-03-10 17:42] MED LIST: ACET-868 PO; ACET325T53 PO; ALBU8.5H8 IH; BISA10SU11 RC; IPRA3AMP23 IH; MAG-55 PO; MAGN400O6 PO; NA P133E RC
[2025-03-10] MEDS ORDERED: MULT-213 PO (18:56)
[2025-03-10] MEDS ORDERED: SERT50TA PO (18:56)
[2025-03-10] MEDS ORDERED: MAGN400T30 PO (18:56)
[2025-03-10] MEDS ORDERED: ARIP10TA57 PO (18:56)
[2025-03-10] MEDS ORDERED: NA PHOS,M-B/NA PHOS,DI-BA 1 EA ENEMA RC PRN (19:00)
[2025-03-10] MEDS ORDERED: BISACODYL SUPP (10 MG) 10 MG/SUPP.RECT SUPP.RECT RC PRN (19:00)
[2025-03-10 19:17] LABS: APPEARANCE,URINE SLIGHTLY CLOUDY (CLEAR); BLOOD, URINE TRACE-INTA Ery/uL (NEGATIVE); LEUKOCYTE ESTERASE ,URINE 2+ (NEGATIVE); NITRITE, URINE NEGATIVE (NEGATIVE); UGLUCOSE NEGATIVE (NEGATIVE)
[2025-03-10 19:27] LABS: ADD URINE CULTURE YES; AMPHETAMINE, URINE NEGATIVE (NEGATIVE); BARBITURATE, URINE NEGATIVE (NEGATIVE); BENZODIAZEPINE, URINE NEGATIVE (NEGATIVE); CANNABINOID, URINE NEGATIVE (NEGATIVE); COCCAINE, URINE NEGATIVE (NEGATIVE); OPIATE, URINE NEGATIVE (NEGATIVE); SQUAMOUS EPITHELIAL CELL,UR 0-2 /HPF (None Seen)
[2025-03-10 19:31] LABS: PLATELET COUNT (AUTO) 226 K/uL (150-450); RED BLOOD CELL COUNT(AUTO) 4.27 MIL/uL (4.0-5.2); RED CELL DISTRIBUTION WIDTH 15.0 % (11.5-15.0); WHITE BLOOD COUNT (AUTO) 5.4 K/uL (4.3-11.0)
[2025-03-10 19:52] LABS: ALCOHOL, BLOOD < 3 mg/dL (0-10); ASPARTATE AMINOTRANSFERASE 21 U/L (15-37); CALCIUM, SERUM 8.8 mg/dL (8.5-10.1); CREATININE 0.7 mg/dL (0.6-1.3); SODIUM SERUM 138 mmol/L (136-145); TOTAL PROTEIN, SERUM 6.6 g/dL (6.4-8.2); UREA NITROGEN, BLOOD 16 mg/dL (7-18)
[2025-03-10] MEDS ORDERED: CEPHALEXIN MONOHYDRATE 500 MG CAPSULE PO ONE (21:20)
[2025-03-10] MEDS: CEPHALEXIN MONOHYDRATE 500 MG CAPSULE PO ONE (21:24)
[2025-03-10 22:30] VITALS: BP 121/74; TEMP 97.9; O2SAT 99
[2025-03-10] MEDS ORDERED: MAG HYDROX/AL HYDROX/SIMETH 30 ML UDC PO PRN (23:00)
[2025-03-10] MEDS ORDERED: ACETAMINOPHEN 325 MG TABLET PO PRN (23:00)
[2025-03-10] MEDS ORDERED: ZOLPIDEM TARTRATE 5 MG TABLET PO PRN (23:00)
[2025-03-10] MEDS ORDERED: MAGNESIUM HYDROXIDE 30 ML UDC PO PRN (23:00)
[2025-03-10] MEDS ORDERED: QUETIAPINE FUMARATE 25 MG TABLET PO PRN (23:00)
[2025-03-10] MEDS: BLOOD SUGAR DIAGNOSTIC 1 EACH STRIP IN ONE (23:41)
[2025-03-11] MEDS ORDERED: SERTRALINE HCL 50 MG TABLET PO SCH (09:00)
[2025-03-11] MEDS: MAGNESIUM OXIDE 400 MG TABLET PO SCH (09:00)
[2025-03-11] MEDS ORDERED: ARIPIPRAZOLE 5 MG TABLET PO SCH (09:00)
[2025-03-11] MEDS: MULTIVIT W/MINERALS 1 TAB TABLET PO SCH (09:00)
[2025-03-11] MEDS: CEPHALEXIN MONOHYDRATE 250 MG CAPSULE PO SCH (12:00)
[2025-03-11] MEDS: DIVALPROEX SODIUM 125 MG TABLET.DR PO SCH (13:20)
[2025-03-11 20:10] VITALS: BP_SYST 124; BP_SYST 90; BP_DIAS 63; BP_DIAS 64; TEMP 97.5; TEMP 97.7; O2SAT 96; O2SAT 98
[2025-03-11] MEDS: OLANZAPINE 2.5 MG TABLET PO SCH (21:00)
[2025-03-11] MEDS: MIRTAZAPINE 15 MG TABLET PO SCH (21:44)
[2025-03-12 08:00] VITALS: BP 137/114; TEMP 97.5; O2SAT 95
[2025-03-12 16:00] VITALS: BP 106/60; TEMP 98; O2SAT 100
[2025-03-12 20:48] VITALS: BP 103/65; TEMP 98; O2SAT 98
[2025-03-12] MEDS: OLANZAPINE 2.5 MG TABLET PO SCH (21:00)
[2025-03-13 08:00] VITALS: BP 100/56; TEMP 97.9; O2SAT 99
[2025-03-13 16:00] VITALS: BP 104/71; TEMP 97.4; O2SAT 94
[2025-03-13 21:10] VITALS: BP 97/65; TEMP 98.1; O2SAT 98
[2025-03-14 08:00] VITALS: BP 101/62; TEMP 98.1; O2SAT 98
[2025-03-14] MEDS ORDERED: LORAZEPAM 0.5 MG TABLET PO PRN ×2 (13:30→14:00)
[2025-03-14 16:00] VITALS: BP 109/71; TEMP 97.8; O2SAT 99
[2025-03-14] MEDS: ZOLPIDEM TARTRATE 5 MG TABLET PO PRN (22:39)
[2025-03-15 08:00] VITALS: BP 115/67; TEMP 98.7; O2SAT 100
[2025-03-15 16:00] VITALS: BP 102/74; TEMP 97.8; O2SAT 99
[2025-03-15 20:00] VITALS: BP 97/67; TEMP 97.8; O2SAT 96
[2025-03-15 20:15] VITALS: BP 97/67; TEMP 97.8; O2SAT 96
[2025-03-15] MEDS: DIVALPROEX SODIUM 125 MG TABLET.DR PO SCH (21:03)
[2025-03-16 08:00] VITALS: BP 114/60; TEMP 97.6; O2SAT 98
[2025-03-16 16:00] VITALS: BP 91/53; TEMP 97.8; O2SAT 97
[2025-03-16] MEDS: CEFTRIAXONE 1 G VIAL IM ONE (18:11)
[2025-03-16 20:00] VITALS: BP 95/59; TEMP 98; O2SAT 99
[2025-03-16 20:28] VITALS: BP 95/54; TEMP 98; O2SAT 99
[2025-03-17 08:00] VITALS: BP 133/93; TEMP 97.8; O2SAT 98
[2025-03-17] MEDS: MAGNESIUM HYDROXIDE 30 ML UDC PO PRN (09:04)
[2025-03-17 16:00] VITALS: BP 100/68; TEMP 97.9; O2SAT 96
[2025-03-17 20:00] VITALS: BP 107/68; TEMP 98.2; O2SAT 98
[2025-03-17 20:20] VITALS: BP 105/62; TEMP 97.9; O2SAT 98
[2025-03-17] MEDS: OLANZAPINE 10 MG VIAL IM PRN (21:12)
[2025-03-18 08:00] VITALS: BP 119/79; TEMP 97.5; O2SAT 97
[2025-03-18] MEDS: OLANZAPINE 2.5 MG TABLET PO SCH (13:40)
[2025-03-18] MEDS: OLANZAPINE 10 MG VIAL IM PRN (13:46)
[2025-03-18 16:00] VITALS: BP 97/62; TEMP 97.9; O2SAT 96
[2025-03-19 08:00] VITALS: BP 96/68; TEMP 97.8; O2SAT 98
[2025-03-19 16:07] VITALS: BP 99/57; TEMP 97.8; O2SAT 94
[2025-03-20 08:19] VITALS: BP 98/61; TEMP 97.7; O2SAT 98
[2025-03-20] MEDS: ACETAMINOPHEN 325 MG TABLET PO PRN (10:07)
[2025-03-20 16:06] VITALS: BP 99/63; TEMP 97.9; O2SAT 97
[2025-03-20 20:37] VITALS: BP 92/63; TEMP 98.6; O2SAT 95
[2025-03-20 21:08] VITALS: BP 92/63; TEMP 98.6; O2SAT 95
[2025-03-21 08:00] VITALS: BP 81/51; TEMP 97.9; O2SAT 96
[2025-03-21 16:00] VITALS: BP 126/79; TEMP 97.9; O2SAT 98
[2025-03-21 20:48] VITALS: BP 92/56; TEMP 97.9; O2SAT 97
[2025-03-22 08:00] VITALS: BP 134/76; TEMP 98.6; O2SAT 96
[2025-03-22 16:00] VITALS: BP 127/78; TEMP 97.8; O2SAT 97
[2025-03-22] MEDS ORDERED: OLANZAPINE 10 MG VIAL IM PRN (18:00)
[2025-03-22 20:03] VITALS: BP 122/68; TEMP 98; O2SAT 95
[2025-03-22] MEDS: OLANZAPINE ZYDIS 5 MG TAB.RAPDIS PO SCH (21:08)
[2025-03-23 08:00] VITALS: BP 125/79; TEMP 97.8; O2SAT 97
[2025-03-23 08:44] LABS: ASPARTATE AMINOTRANSFERASE 22.0 U/L (15-37); CALCIUM, SERUM 9.3 mg/dL (8.5-10.1); CREATININE 0.8 mg/dL (0.6-1.3); SODIUM SERUM 143.0 mmol/L (136-145); TOTAL PROTEIN, SERUM 6.8 g/dL (6.4-8.2); UREA NITROGEN, BLOOD 32.0 mg/dL (7-18)
[2025-03-23] MEDS ORDERED: OLANZAPINE 10 MG VIAL IM PRN (09:00)
[2025-03-23] MEDS: OLANZAPINE 2.5 MG TABLET PO SCH (09:15)
[2025-03-23 11:45] LABS: VALPROIC ACID 60.0 ug/mL (50-100)
[2025-03-23 16:06] VITALS: BP 106/69; TEMP 98.2; O2SAT 99
[2025-03-23 20:24] VITALS: BP 106/67; TEMP 98.2; O2SAT 97
[2025-03-23 20:47] VITALS: BP 106/67; TEMP 98.2; O2SAT 97
[2025-03-24 08:00] VITALS: BP 126/78; TEMP 98.2; O2SAT 99
== END 2025-03-24 13:40 | DRG 885 ==
LOC: ER 18:04 → GPS 22:12
PROVIDERS: ADMIT Psychiatry & Neurology Psychiatry; ATTEND Internal Medicine
DX: F39 Unspecified mood [affective] disorder (principal); N18.9 Chronic kidney disease, unspecified; F03.92 Unspecified dementia, unspecified severity, with psychotic disturbance; F03.93 Unspecified dementia, unspecified severity, with mood disturbance; F03.94 Unspecified dementia, unspecified severity, with anxiety; G93.40 Encephalopathy, unspecified; N39.0 Urinary tract infection, site not specified; E46 Unspecified protein-calorie malnutrition; F29 Unspecified psychosis not due to a substance or known physiological condition; F03.90 Unspecified dementia, unspecified severity, without behavioral disturbance, psychotic disturbance, mood disturbance, and anxiety; J45.909 Unspecified asthma, uncomplicated; Z20.822 Contact with and (suspected) exposure to COVID-19; F25.9 Schizoaffective disorder, unspecified; F41.9 Anxiety disorder, unspecified; Z79.899 Other long term (current) drug therapy; Z91.148 Patient's other noncompliance with medication regimen for other reason; Z91.81 History of falling; S80.812A Abrasion, left lower leg, initial encounter; S80.811A Abrasion, right lower leg, initial encounter; X58.XXXA Exposure to other specified factors, initial encounter; Y92.9 Unspecified place or not applicable; R53.1 Weakness; R27.8 Other lack of coordination; M19.90 Unspecified osteoarthritis, unspecified site; G62.9 Polyneuropathy, unspecified; F17.210 Nicotine dependence, cigarettes, uncomplicated; E88.09 Other disorders of plasma-protein metabolism, not elsewhere classified; F32.A Depression, unspecified; Z86.19 Personal history of other infectious and parasitic diseases
CPT/HCPCS: 36415; 70450-TC; 80048-TC; 80053-TC; 80076-TC; 80164-TC; 81001; 82607-TC; 82962-TC; 84443-TC; 85025-TC; 87040-TC; 87081-TC; 87086-TC; 87186-TC; G0480; J0696; J3490